=== PATIENT | male | born 1975 | race Caucasian/White ===

== ENCOUNTER 2019-05-02 11:08 | Emergency (ER) | payer OTHER ==
[~2019-05-02] VITALS: Ht 172.7 cm; Wt 86.2 kg
[2019-05-02 11:32] LABS: HEMATOCRIT 42.4 % (42.0-52.0); HEMOGLOBIN 14.4 gm/dL (14.0-18.0); MCH 30.8 pg (26.0-34.0); MCHC 34.1 g/dL (28.0-37.0); MCV 90.4 fL (80.0-100.0); PLATELET COUNT 329 thou/uL (150-400); RBC 4.69 mil/uL (4.50-6.00); RDW 13.9 % (10.5-14.5); WBC 22.8 thou/uL (4.0-11.0)
[2019-05-02 11:48] LABS: CALCIUM 8.6 mg/dL (8.5-10.1); CREATININE 1.2 mg/dL (0.7-1.3); POTASSIUM 3.8 mmol/L (3.5-5.1)
[2019-05-02 11:51] LABS: ALBUMIN 3.8 g/dL (3.4-5.0); TOTAL BILIRUBIN 0.3 mg/dL (<0.1-1.0); TOTAL PROTEIN 7.2 g/dL (6.4-8.2)
[2019-05-02 12:04] LABS: ABSOLUTE NEUTROPHILS 18.9 thou/uL (1.4-8.2); ANISOCYTOSIS 1+
[2019-05-02] MEDS ORDERED: KEFLEX500 M1 PO (15:36)
[2019-05-02 15:39] VITALS: BP 109/76
== END 2019-05-02 16:04 | disposition home or self-care (01) ==
LOC: ER 11:08
PROVIDERS: Emergency Medicine
DX: S01.01XA Laceration without foreign body of scalp, initial encounter (principal); S05.32XA Ocular laceration without prolapse or loss of intraocular tissue, left eye, initial encounter; S90.415A Abrasion, left lesser toe(s), initial encounter; F17.210 Nicotine dependence, cigarettes, uncomplicated; W18.39XA Other fall on same level, initial encounter; Y92.89 Other specified places as the place of occurrence of the external cause; Y93.89 Activity, other specified; Y99.8 Other external cause status